=== PATIENT | female | born 1985 | race African-American/Black ===

== ENCOUNTER 2017-09-01 04:29 | Emergency (ER) | payer SELFPAY ==
[2017-09-01 04:59] VITALS: BP 114/82
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
== END 2017-09-01 06:00 | disposition home or self-care (01) ==
LOC: ER 04:29
DX: S40.212A Abrasion of left shoulder, initial encounter (principal); S61.511A Laceration without foreign body of right wrist, initial encounter; Y04.2XXA Assault by strike against or bumped into by another person, initial encounter; S40.862A Insect bite (nonvenomous) of left upper arm, initial encounter; S40.861A Insect bite (nonvenomous) of right upper arm, initial encounter; S80.862A Insect bite (nonvenomous), left lower leg, initial encounter; S80.861A Insect bite (nonvenomous), right lower leg, initial encounter; W57.XXXA Bitten or stung by nonvenomous insect and other nonvenomous arthropods, initial encounter
CPT/HCPCS: 36415; 99284

== ENCOUNTER 2017-11-03 10:39 | Emergency (ER) | payer OTHER ==
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
[2017-11-03] MEDS ORDERED: IBUPROFEN 800 MG TABLET PO ONE (12:57)
== END 2017-11-03 12:51 | disposition home or self-care (01) ==
LOC: ER 10:39
DX: S80.12XA Contusion of left lower leg, initial encounter (principal); S60.211A Contusion of right wrist, initial encounter; M54.5 Low back pain; R10.2 Pelvic and perineal pain; M25.562 Pain in left knee; M25.531 Pain in right wrist; M25.572 Pain in left ankle and joints of left foot; V13.9XXA Unspecified pedal cyclist injured in collision with car, pick-up truck or van in traffic accident, initial encounter; F17.200 Nicotine dependence, unspecified, uncomplicated
CPT/HCPCS: 99284; 73562; 72110; 73590; 73100; L1830